=== PATIENT | female | born 1995 | race Caucasian/White ===

== ENCOUNTER 2020-06-12 14:12 | Emergency (ER) | payer OTHER ==
[2020-06-12 14:20] VITALS: BP 128/71
[2020-06-12] MEDS ORDERED: BUFFERED LIDOCAINE 10 ML SYRINGE SUBQ STA (14:38)
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
== END 2020-06-12 15:45 | disposition home or self-care (01) ==
LOC: ED 14:12
DX: S01.01XA Laceration without foreign body of scalp, initial encounter (principal); W31.89XA Contact with other specified machinery, initial encounter; Y99.0 Civilian activity done for income or pay
CPT/HCPCS: 1040M; 12001; 99281; 99282

== ENCOUNTER 2020-12-08 08:00 | Outpatient (CLI) | payer OTHER | END 2020-12-08 23:59 | disposition home or self-care (01) | LOC: LAB.S 08:00 | PROVIDERS: ATTEND Physician Assistant | DX: R05 Cough (principal); Z20.822 Contact with and (suspected) exposure to COVID-19 ==